=== PATIENT | female | born 1960 | race Caucasian/White ===

== ENCOUNTER 2022-12-25 09:29 | Day surgery (SDC) | payer MEDICAID, SELFPAY ==
[2022-12-25] VITALS (13 sets, daily range): BP systolic 111–154; BP diastolic 56–87; PULSE 56–71; RESP 12–16; TEMP 36.5–37.3; O2SAT 91–99; BMI 31.6
--- NOTE | 2022-12-25 09:25 | PC.SOCIAL ---
Met with pt. who currently does not have insurance and needs surgery. Pt. states she applied for medical assistance a year ago and was denied due to her income. Gave pt. the financial assistance application through [facility] and recommended pt. apply for MA again due to her costly surgery. Requested pt.'s surgeon write a letter of medical necessity that pt. can submit with her medical assistance application. Pt. works at the [employer] and plans to fill out the medical assistance application on line.
[2022-12-25] MEDS: LACTATED RINGERS 1000 ML 1,000 ML 100 ML IV (10:00)
[2022-12-25] MEDS: SODIUM CHLORIDE 0.9 % (FLUSH) 10 ML SYRINGE IVF (10:00)
--- NOTE | 2022-12-25 11:37 | W.ANESCHARGE ---
Anesthesia Charges Start Date/Time Anesthesia Start Date: 12/25/22 Anesthesia Start Time: 12:16 Stop Date/Time Anesthesia Stop Date: 12/25/22 Anesthesia Stop Time: 13:43
[2022-12-25] MEDS: BUPIVACAINE 0.25% 30 ML 20 ML INJECTION (13:18)
--- NOTE | 2022-12-25 13:25 | P.GSOP_ITS ---
Operative Note Date of procedure: 12/25/22 Pre-op diagnosis: 1. Acute on chronic cholecystitis. 2. Cholelithiasis. Post-op diagnosis: Same Type of Procedure: 1. Laparoscopic cholecystectomy. Indications: 62-year-old female was seen in clinic with persistent right upper quadrant and epigastric pain that started last week the pain was severe and persistent. Patient had similar painful episodes in the past but those would usually resolve in a couple days. This pain did not resolve and patient was concerned. She was seen in clinic by her primary care doctor first and was found to have a normal WBC. Her liver function tests and lipase were normal. A gallbladder ultrasound was obtained that showed thickened gallbladder wall with a stone in the gallbl adder and debris. Her common bile duct was normal. Patient was referred to surgery Clinic. On clinical exam she had tenderness to palpation in the right upper quadrant with positive Guardado sign. Given patient's clinical history and her laboratory and imaging findings, acute on chronic cholecystitis was suspected, and laparoscopic cholecystectomy was recommended. The procedure was discussed in detail. The risks associated procedure including infection, bleeding, injury to intra-abdominal organs, and injury to the common bile duct were all discussed with the patient, and she agreed to proceed. Procedure Description: After discussing the risks and benefits of the procedure, the patient signed informed consent.? The operative site was marked and the patient was brought to the operating room and placed on the operating table in supine position.? Care was taken to pad the patient's pressure points.?? The patient was then Intubated by anesthesia.?? The operative site was then prepped and draped in the usual sterile fashion.? A time-out was then performed. A 5-mm laparoscopy port was placed in the left upper quadrant guided by a 5-mm laparoscope placed into a translucent trochar.~ Passage through the layers of the abdominal wall was visualized with the laparoscope.~ A pneumoperitoneum was established. A 0-degree 5-mm laparoscope was advanced into the abdomen. The abdomen was briefly surveyed, and no adhesions were noted. A 10-mm port were placed supraumbilically and two more 5 mm ports were placed on the right under direct visualization by laparoscope. The camera was then changed to 10 mm 30- degree scope and placed into the abdomen through the 10 mm port. The left upper quadrant port entrance was examined and no injury to intra-abdominal organs was identified. The gallbladder was identified but I was unable to grasp the gallbladder. The gallbladder was then decompressed with laparoscopic needle. 15 mL of thickened bile was suctioned out and I was able to grasp the gallbladder. The fundus Was grasped and retracted cephalad. I was not able to grasp the infundibulum because there was a large stone lodged in the infundibulum. The dissection was mostly performed with retracting the infundibulum bluntly. The peritoneum overlying triangle of Calot was divided with hook cautery. Common bile duct was not identified but care was taken not to injure it. The cystic duct was clearly identified and bluntly dissected circumferentially. Cystic artery was identified and tissues around it were dissected off. The node of Calot was dissected off the cystic artery and retracted towards the duodenum. The tissues in the triangle of Calot were very dense and fibrotic. The peritoneum overlying the gallbladder was also fibrotic suggestive of chronic inflammation. The cystic artery and the cystic duct were clearly going into the gallbladder. The cystic duct was then doubly ligated with surgical clips on the patient's side and singly clipped on the gallbladder side and divided. The cystic artery was then similarly ligated with clips and divided as well. The gallbladder was dissected from the liver bed in retrograde fashion using hookcautery. This dissection was very difficult because it was difficult to tell where the plane between the gallbladder and the liver was. During this dissection the gallbladder was entered and thickened sludge came out from the gallbladder. This was suctioned out. The gallbladder was then finally dissected of the liver and placed into an Endo-Catch bag and removed through the supraumbilical incision. Surgical site was examined for bleeding. No bleeding was seen in the surgical field. The fascia of the supraumbilical incision was then closed with 0-0 vicryl using Crow Asher needle under direct visualization. Patient had a small umbilical hernia in this area and this was not repaired. Pneumoperitoneum was completely reduced after viewing removal of the trocars under direct vision. The skin was then closed with 4-0 monocryl and steristrips were applied. Instrument, sponge, and needle counts were correct at closure and at the conclusion of the case. The patient was transferred to PACU in stable condition. Findings: Acute on chronic inflammation with a large stone lodged at the infundibulum. Small umbilical hernia. Anesthesia: GETA Surgeon: Michael Lopez MD Estimated blood loss (mL): 20 Specimen: Gallbladder Condition: stable Disposition: PACU
--- NOTE | 2022-12-25 13:44 | W.ANESCHARGE ---
Anesthesia Charges Start Date/Time Anesthesia Start Date: 12/25/22 Anesthesia Start Time: 12:16 Stop Date/Time Anesthesia Stop Date: 12/25/22 Anesthesia Stop Time: 13:43
== END 2022-12-25 15:45 | disposition home or self-care (01) ==
PROVIDERS: Visit Provider Surgery
PROC: 0FT44ZZ Resection of Gallbladder, Percutaneous Endoscopic Approach (ICD-10-PCS; CPT 47562; principal; 2022-12-25 12:00)
DX: K80.12 Calculus of gallbladder with acute and chronic cholecystitis without obstruction (principal)
CPT/HCPCS: 47562; 00790; 88304; J0330; J0665; J1100; J1885; J2405; J2704; J2710; J3010; J7120

== ENCOUNTER 2023-08-28 12:09 | Emergency (ER) | payer BC, SELFPAY ==
[2023-08-28 12:17] VITALS: BP 170/103; PULSE 53; RESP 14; TEMP 36.2; O2SAT 96; BMI 32.6
--- NOTE | 2023-08-28 12:47 | CT_ITS ---
Patient: BRIAN MATAMOROS Facility:?[facility] Patient ID:?[id number] Site Patient ID:?[id number]. Site :?[id number] Study:?CT-Chest PE W/ISOVUE 370 95CC-08/28/2023 2:34:48 PM Ordering Physician:LORETA Final Report: Indication: Shortness of breath, left upper quadrant pain Technique: Volumetric multidetector CT images of the chest were obtained after the administration of IV contrast. Contrast low osmolar intravenous contrast Comparison: None available. Findings: The thoracic inlet and thyroid gland are unremarkable. The thoracic aorta is nonaneurysmal. There is no central filling defect to suggest pulmonary embolism. There is no mediastinal, hilar or axillary adenopathy. There is mild central bronchial thickening. There is mild interstitial prominence and air trapping within the lower lobes likely representing low lung volumes with atelectasis, mild pulmonary vascular congestion is difficult to exclude. No dense consolidation, effusion or pneumothorax. There is no evidence of pulmonary mass or suspicious pulmonary nodule. The partially visualized upper abdominal viscera are within normal limits. The thoracic vertebral body heights remain intact alignment without significant degenerative change or acute osseous abnormality. Impression: Somewhat low lung volumes with likely basilar atelectasis and bronchovascular crowding. Mild central bronchial thickening and interstitial prominence. A component of mild pulmonary vascular congestion is difficult to exclude. No evidence of pulmonary embolus. Please note that all CT scans at this facility use dose modulation, iterative reconstruction, and/or weight-based dosing when appropriate to reduce radiation dose to as low as reasonably achievable. Dictated by Branden Prince MD @ 08/28/2023 3:26:44 PM Signed by:?Branden Prince MD @08/28/2023 3:26:44 PM (Electronic Signature)
--- NOTE | 2023-08-28 12:47 | CT_ITS ---
Patient: BRIAN MATAMOROS Facility:?[facility] Patient ID:?[id number] Site Patient ID:?[id number] Site :?1960 Study:?CT-Abdomen/Pelvis W/ISOVUE 370 95CC-08/28/2023 2:35:03 PM Ordering Physician:LORETA Final Report: Indication: Shortness of breath, left upper quadrant pain Technique: Volumetric multidetector CT images of the abdomen and pelvis were obtained after the administration of intravenous contrast. 95 cc Isovue 370 low osmolar intravenous contrast Comparison: None available. Findings: There is minimal basilar atelectasis and parenchymal scar. The liver is normal in attenuation without intrahepatic biliary ductal dilatation. The portal vein is patent. There is prior cholecystectomy. Mild common biliary ductal dilatation. The spleen is normal in enhancement and size. The stomach and duodenum are grossly unremarkable. The pancreas is normal in enhancement without significant atrophy. The adrenal glands are unremarkable. The kidneys demonstrate preserved corticomedullary differentiation without evidence of obstructive uropathy. There is moderate stool seen throughout the colon with distal colonic diverticulosis without evidence of diverticulitis. There is mild nonspecific fluid seen throughout the central small bowel. The appendix is unremarkable. There is no significant mesenteric, retroperitoneal, or pelvic sidewall lymph nodes. The aorta is nonaneurysmal. There is no significant atherosclerotic disease appreciated. The solid pelvic viscera are grossly unremarkable. There is no free fluid or free air. The anterior abdominal wall is intact without significant hernias. The lumbar vertebral body heights are grossly maintained with mild to moderate degenerative disc disease. There is moderate facet arthrosis. Impression: Moderate stool with colonic diverticulosis without definite evidence of diverticulitis. Prior cholecystectomy. Otherwise, no acute intra-abdominal abnormalities are appreciated. Please note that all CT scans at this facility use dose modulation, iterative reconstruction, and/or weight-based dosing when appropriate to reduce radiation dose to as low as reasonably achievable. Dictated by Branden Prince MD @ 08/28/2023 3:30:37 PM Signed by:Veronica Prince MD @08/28/2023 3:30:37 PM (Electronic Signature)
--- NOTE | 2023-08-28 12:57 | ED.GENADULT ---
HPI - General Adult General Date Seen: 08/28/23 Chief complaint: Shortness of Breath/Dyspnea Stated complaint: Shortness of breath, L side pain Time Seen by Provider: 08/28/23 12:12 Source: patient and RN notes reviewed Mode of arrival: ambulatory Limitations: no limitations History of Present Illness HPI narrative: Patient is a 62-year-old woman who presents for evaluation of left upper abdominal pain as well as shortness of breath. She says that she initially noted some pain in her left upper to mid abdomen which now radiates to the left flank about 10-12 days ago. She plays pickleball on Fridays, and assumed that she had just pulled a muscle, but symptoms have persisted and now seem to be spreading to the back. Along the same time frame, she has noticed some shortness of breath, initially just when she was playing pickleball but she says for the past several days she feels short of breath all the time. She says she feels winded is if she had just run up a flight of stairs. She has not had chest pain or pressure, shortness of breath has now been constant for several days without variation. She denies lower extremity swelling or pain. She has not had fevers or cough. She has a history of hypertension, was recently started on lisinopril which she had says has not made any difference in her blood pressure. She denies vomiting, diarrhea, black or bloody stools. She smoked many years ago but does not have any history of COPD or asthma and quit smoking over 10 years ago. Related Data Home Medications Medication Instructions Recorded Confirmed cefadroxil 500 mg capsule 500 mg PO BID 08/28/23 08/28/23 lisinopril 10 mg tablet 10 mg PO DAILY 08/28/23 08/28/23 silver sulfadiazine 1 % topical applic topical 08/28/23 cream (SSD) Allergies Allergy/AdvReac Type Severity Reaction Status Date / Time scotchgard Allergy Intermediate rash Uncoded 12/25/22 08:29 Review of Systems Status of ROS: Reports: 10 or more systems reviewed and unremarkable except as noted in History and below [facility] Surgical History S/P tubal ligation ?Z98.51 - Tubal ligation status (ICD-10) Social History Smoking Status: Never smoker Do you use any of these nicotine containing products: None How often do you have a drink containing alcohol: 2-3 times a week Alcohol type: beer, wine and hard liquor How many standard drinks containing alcohol do you have on a typical day: 1 or 2 How often do you have six or more drinks on one occasion: Never AUDIT-C Alcohol total score: 3 Non-prescribed substance use: denies use Caffeine: Yes Are you using contraception or practicing any form of control: No Exam Narrative: Exam Narrative: Vital signs as noted above. In general, an alert, well-appearing patient. Head: Normocephalic, atraumatic. Eyes: Pupils are equal reactive. Extraocular movements are full. Conjunctivae are normal. ENT: Mucous membranes are moist. Throat is normal. Neck: Supple without lymphadenopathy. Heart: Regular rate and rhythm. No murmur or rub. Lungs: Clear bilaterally. No increased work of breathing, crackles or wheezes. Abdomen: Soft, nondistended. Mild left mid upper abdominal tenderness without rebound guarding or rigidity. No CVA tenderness. Extremities: Well perfused. No edema. No calf tenderness. Pulses intact. Neurologic: Patient is alert and oriented to person and place. Speech is fluent. Face is symmetric. Moves all extremities equally. Affect: Normal. Skin: Warm and dry. Well perfused. Const: Vital Signs, click to edit/add: Vital Signs - 24 hr 08/28/23 12:17 08/28/23 16:05 Temperature 97.2 F L Pulse Rate [Pulse Oximeter] 53 L 51 L Respiratory Rate 14 16 Blood Pressure [Ri ght Upper Arm] 170/103 H 152/92 H Pulse Oximetry 96 97 Oxygen Delivery Me thod Room Air Room Air Documenting provider has reviewed patient's vital signs: yes Course Course ED Course: Patient presents with shortness of breath and left abdominal pain, unclear whether these are related. Diagnostic considerations include atypical angina, acute coronary syndrome, pleural effusion, pneumonia, PE, congestive heart failure, pyelonephritis or kidney stone, diverticulitis, anemai, among others. With persistence of left-sided pain for the past week and half, I think it is reasonable to image and therefore will do a CT scan of the chest as well as the abdomen to evaluate for the above pathology. Patient's labs notable for a normal white blood cell count of 6.7, normal hemoglobin. Initial point of care troponin was 0.09, but a 2 hour repeat was 0. Will send a lab troponin to clarify. COVID and influenza as well as RSV were negative. UA negative, 0-2 red cells 0-2 white cells. Metabolic panel within normal limits, LFTs within normal limits with the exception of very minimal elevations of AST and ALT at 37 each. CRP less than 0.5, BNP was entirely normal at 37. Lipase was 284 and TSH was normal. CT scans of the chest abdomen pelvis by my review did not show any significant findings such as PE, consolidation, hemorrhage, mass or evidence of renal pathology or diverticulitis. Final radiology read of the chest CT is as follows:Findings: The thoracic inlet and thyroid gland are unremarkable. The thoracic aorta is nonaneurysmal. There is no central filling defect to suggest pulmonary embolism. There is no mediastinal, hilar or axillary adenopathy. There is mild central bronchial thickening. There is mild interstitial prominence and air trapping within the lower lobes likely representing low lung volumes with atelectasis, mild pulmonary vascular congestion is difficult to exclude. No dense consolidation, effusion or pneumothorax. There is no evidence of pulmonary mass or suspicious pulmonary nodule. The partially visualized upper abdominal viscera are within normal limits. The thoracic vertebral body heights remain intact alignment without significant degenerative change or acute osseous abnormality. Impression: Somewhat low lung volumes with likely basilar atelectasis and bronchovascular crowding. Mild central bronchial thickening and interstitial prominence. A component of mild pulmonary vascular congestion is difficult to exclude. No evidence of pulmonary embolus. CT of the abdomen and pelvis read as follows: The liver is normal in attenuation without intrahepatic biliary ductal dilatation. The portal vein is patent. There is prior cholecystectomy. Mild common biliary ductal dilatation. The spleen is normal in enhancement and size. The stomach and duodenum are grossly unremarkable. The pancreas is normal in enhancement without significant atrophy. The adrenal glands are unremarkable. The kidneys demonstrate preserved corticomedullary differentiation without evidence of obstructive uropathy. There is moderate stool seen throughout the colon with distal colonic diverticulosis without evidence of diverticulitis. There is mild nonspecific fluid seen throughout the central small bowel. The appendix is unremarkable. There is no significant mesenteric, retroperitoneal, or pelvic sidewall lymph nodes. The aorta is nonaneurysmal. There is no significant atherosclerotic disease appreciated. The solid pelvic viscera are grossly unremarkable. There is no free fluid or free air. The anterior abdominal wall is intact without significant hernias. The lumbar vertebral body heights are grossly maintained with mild to moderate degenerative disc disease. There is moderate facet arthrosis. Impression: Moderate stool with colonic diverticulosis without definite evidence of diverticulitis. Prior cholecystectomy. Otherwise, no acute intra-abdominal abnormalities are appreciated. With clear lungs, normal O2 set and a BNP of 37, I do not think her symptoms are related to significant heart failure. Have reviewed all this with her. The lab troponin is pending. If that is normal, then I would recommend outpatient follow-up and consideration of stress test given that she had had some exertional dyspnea over the past couple of weeks. No other acute findings to explain her symptoms on today's evaluation. Vital Signs Vital signs: Initial Vital Signs Temperature 97.2 F L 08/28/23 12:17 Temperature Source Temporal Artery Scan 08/28/23 12:17 Pulse Rate 53 L 08/28/23 12:17 Pulse Rhythm Regular 08/28/23 12:17 Respiratory Rate 14 08/28/23 12:17 Blood Pressure 170/103 H 08/28/23 12:17 Blood Pressure Mean 125 H 08/28/23 12:17 Blood Pressure Position Sitting 08/28/23 12:17 Pulse Oximetry 96 08/28/23 12:17 Oxygen Delivery Method Room Air 08/28/23 12:17 Vital Signs Temperature 97.2 F L 08/28/23 12:17 Pulse Rate 53 L 08/28/23 12:17 Respiratory Rate 14 08/28/23 12:17 Blood Pressure 170/103 H 08/28/23 12:17 Pulse Oximetry 96 08/28/23 12:17 Oxygen Delivery Method Room Air 08/28/23 12:17 Temperature 97.2 F L 08/28/23 12:17 Pulse Rate 51 L 08/28/23 16:05 Respiratory Rate 16 08/28/23 16:05 Blood Pressure 152/92 H 08/28/23 16:05 Pulse Oximetry 97 08/28/23 16:05 Oxygen Delivery Method Room Air 08/28/23 16:05 Medical Decision Making Lab Data Labs: Lab Results 08/28/23 08/28/23 08/28/23 Range/Units 13:20 14:32 14:51 WBC 6.88 (4.50-11.00) K/uL RBC 4.61 (4.00-5.20) m/uL Hgb 14.6 (12.0-16.0) gm/dL Hct 44.0 (33.0-51.0) % MCV 95 (80-100) fL MCH 32 (26-34) pg MCHC 33 (32-36) gm/dL RDW Coeff of [place] 12.7 (11.5-15.5) % Plt Count 257 (140-440) K/uL Neut % (Auto) 54.4 (42.0-72.0) % Lymph % (Auto) 34.3 (20-44) % [place] % (Auto) 6.5 (0.0-11.0) % Eos % (Auto) 4.1 (0.0-7.0) % Baso % (Auto) 0.6 (0.0-3.0) % Neut # (Auto) 3.74 (1.7-7.0) K/uL Lymph # (Auto) 2.36 (0.90-2.90) K/uL [place] # (Auto) 0.40 (0.00-0.90) K/UL Eos # (Auto) 0.28 (0.00-0.50) K/uL Baso # (Auto) 0.04 (0.00-0.30) K/uL Abs Immat Gran (auto) 0.01 (0.00-0.30) K/uL Imm/Tot Granulo (auto) 0.1 % Sodium 140 (135-149) mmol/L Potassium 3.9 (3.6-5.1) mmol/L Chloride 106 (96-114) mmol/L Carbon Dioxide 28 (20-32) mmol/L Anion Gap 6 L (7-15) mEq/L BUN 19 (7-30) mg/dL Creatinine 0.8 (0.5-1.5) mg/dL Estimated Creat Clear 46.73 Estimated GFR 84 ml/min Glucose 91 (60-115) mg/dL Calcium 9.6 (8.4-10.6) mg/dL Total Bilirubin 0.6 (0.1-1.5) mg/dL Direct Bilirubin 0.2 (0.0-0.5) mg/dL AST 37 H (12-35) U/L ALT 37 H (4-35) U/L Alkaline Phosphatase 82 (40-150) U/L Troponin I (0.01-0.04) ng/mL C-Reactive Protein < 0.5 L (0.5-1.0) mg/dL NT-Pro-B Natriuret Pep 37 pg/mL Total Protein 8.1 (6.0-8.3) g/dL Albumin 4.7 (3.3-5.0) g/dL Lipase 284 (23-300) U/L TSH 2.370 (0.270-4.200) uIU/mL Urine Color Yellow (Yellow) Urine Appearance Clear (Clear) Urine pH 6.5 (5.0-8.5) Ur Specific [place] 1.015 (1.000-1.030) Urine Protein Negative (Negative) Urine Glucose (UA) Negative (Negative) Urine Ketones Negative (Negative) Urine Blood Trace-intact A (Negative) Urine Nitrite Negative (Negative) Urine Bilirubin Negative (Negative) Urine Urobilinogen 0.2 (0.2-1.0) Ur Leukocyte Esterase Negative (Negative) Urine RBC 0-2 (0-2) Urine WBC 0-2 (0-5) Ur Squamous Epith Cells None (None-Few) Urine Bacteria None (None) SARS-CoV-2 (PCR) Negative SARS-CoV-2 (Negative) Influenza Type A (PCR) Negative PCR FLU A (Negative) Influenza Type B (PCR) Negative PCR FLU B (Negative) RSV (PCR) Negative PCR RSV (Negative) POC Troponin I 0.09 H 0.00 L (0.01-0.04) ng/ml 08/28/23 Range/Units 15:22 WBC (4.50-11.00) K/uL RBC (4.00-5.20) m/uL Hgb (12.0-16.0) gm/dL Hct (33.0-51.0) % MCV (80-100) fL MCH (26-34) pg MCHC (32-36) gm/dL RDW Coeff of [place] (11.5-15.5) % Plt Count (140-440) K/uL Neut % (Auto) (42.0-72.0) % Lymph % (Auto) (20-44) % [place] % (Auto) (0.0-11.0) % Eos % (Auto) (0.0-7.0) % Baso % (Auto) (0.0-3.0) % Neut # (Auto) (1.7-7.0) K/uL Lymph # (Auto) (0.90-2.90) K/uL [place] # (Auto) (0.00-0.90) K/UL Eos # (Auto) (0.00-0.50) K/uL Baso # (Auto) (0.00-0.30) K/uL Abs Immat Gran (auto) (0.00-0.30) K/uL Imm/Tot Granulo (auto) % Sodium (135-149) mmol/L Potassium (3.6-5.1) mmol/L Chloride (96-114) mmol/L Carbon Dioxide (20-32) mmol/L Anion Gap (7-15) mEq/L BUN (7-30) mg/dL Creatinine (0.5-1.5) mg/dL Estimated Creat Clear Estimated GFR ml/min Glucose (60-115) mg/dL Calcium (8.4-10.6) mg/dL Total Bilirubin (0.1-1.5) mg/dL Direct Bilirubin (0.0-0.5) mg/dL AST (12-35) U/L ALT (4-35) U/L Alkaline Phosphatase (40-150) U/L Troponin I < 0.01 L (0.01-0.04) ng/mL C-Reactive Protein (0.5-1.0) mg/dL NT-Pro-B Natriuret Pep pg/mL Total Protein (6.0-8.3) g/dL Albumin (3.3-5.0) g/dL Lipase (23-300) U/L TSH (0.270-4.200) uIU/mL Urine Color (Yellow) Urine Appearance (Clear) Urine pH (5.0-8.5) Ur Specific [place] (1.000-1.030) Urine Protein (Negative) Urine Glucose (UA) (Negative) Urine Ketones (Negative) Urine Blood (Negative) Urine Nitrite (Negative) Urine Bilirubin (Negative) Urine Urobilinogen (0.2-1.0) Ur Leukocyte Esterase (Negative) Urine RBC (0-2) Urine WBC (0-5) Ur Squamous Epith Cells (None-Few) Urine Bacteria (None) SARS-CoV-2 (PCR) (Negative) Influenza Type A (PCR) (Negative) Influenza Type B (PCR) (Negative) RSV (PCR) (Negative) POC Troponin I (0.01-0.04) ng/ml Discharge Plan Discharge Clinical Impression: Shortness of breath, HTN (hypertension) Patient Disposition: Home, Self-Care Condition: Stable Instructions: Shortness of Breath (ED) Additional Instructions: Your lab troponin is normal. Your kidney function is entirely within normal limits today, and other labs are also reassuring. CT scan of your chest, abdomen and pelvis are There is no clear explanation for your symptoms at this time, but I would recommend that you follow-up with primary care and consider a stress test. You may need additional alterations in your blood pressure medications as well. If you have severe or significantly worsening symptoms return to the ER at any time. Prescriptions: No Action silver sulfadiazine [SSD] 1 % cream topical cefadroxil 500 mg capsule 500 mg PO BID lisinopril 10 mg tablet 10 mg PO DAILY Follow Up/Referrals: Provider,Not a Local [Primary Care Provider] - Stand Alone Forms: [employer] Info Instructions
[2023-08-28 13:35] LABS: Basophils Absolute Auto 0.04 K/uL (0.00-0.30); Basophils Percent Auto 0.6 % (0.0-3.0); Eosinophils Absolute Auto 0.28 K/uL (0.00-0.50); Eosinophils Percent Auto 4.1 % (0.0-7.0); Hemoglobin* 14.6 gm/dL (12.0-16.0); Immature Granulocytes Abs Auto 0.01 K/uL (0.00-0.30); Immature Granulocytes Pct Auto 0.1 %; Lymphocytes Absolute Auto 2.36 K/uL (0.90-2.90); Lymphocytes Percent Auto 34.3 % (20-44); Mean Corpuscular HGB Conc 33 gm/dL (32-36); Mean Corpuscular Hemoglobin 32 pg (26-34); Mean Corpuscular Volume 95 fL (80-100); Monocytes Percent Auto 6.5 % (0.0-11.0); Neutrophils Absolute Auto 3.74 K/uL (1.7-7.0); Neutrophils Percent Auto 54.4 % (42.0-72.0); Platelet Count* 257 K/uL (140-440); RDW Coefficient of Variation % 12.7 % (11.5-15.5); Red Blood Count 4.61 m/uL (4.00-5.20); White Blood Count* 6.88 K/uL (4.50-11.00)
[2023-08-28 13:40] LABS: Troponin, Point-of-Care* 0.09 ng/ml (0.01-0.04)
[2023-08-28 13:41] LABS: Slide Review Reflex No
[2023-08-28 14:02] LABS: Chloride* 106 mmol/L (96-114); Potassium* 3.9 mmol/L (3.6-5.1); Sodium* 140 mmol/L (135-149)
[2023-08-28 14:03] LABS: Albumin* 4.7 g/dL (3.3-5.0)
[2023-08-28 14:04] LABS: Creatinine* 0.8 mg/dL (0.5-1.5); Est. Creatinine Clearance* 46.73; Estimated Glomerular Filt Rate 84 ml/min
[2023-08-28 14:05] LABS: Anion Gap 6 mEq/L (7-15); Blood Urea Nitrogen* 19 mg/dL (7-30); Carbon Dioxide* 28 mmol/L (20-32); Glucose* 91 mg/dL (60-115)
[2023-08-28 14:06] LABS: Alkaline Phosphatase* 82 U/L (40-150); Aspartate Amino Transferase* 37 U/L (12-35); Bilirubin Direct* 0.2 mg/dL (0.0-0.5); Bilirubin Total* 0.6 mg/dL (0.1-1.5); Calcium* 9.6 mg/dL (8.4-10.6); Lipase* 284 U/L (23-300); Total Protein* 8.1 g/dL (6.0-8.3)
[2023-08-28 14:07] LABS: Alanine Aminotransferase* 37 U/L (4-35)
[2023-08-28 14:09] LABS: C Reactive Protein* < 0.5 mg/dL (0.5-1.0)
[2023-08-28 14:17] LABS: NT Pro B Type NatriureticPept* 37 pg/mL
[2023-08-28 14:45] LABS: Appearance Urine Clear (Clear); Bilirubin Urine Negative (Negative); Blood Urine Trace-intact (Negative); Color Urine Yellow (Yellow); Glucose Urine Negative (Negative); Ketones Urine Negative (Negative); Leukocyte Esterase Urine Negative (Negative); Nitrite Urine Negative (Negative); Protein Urine Negative (Negative); Specific Gravity Urine 1.015 (1.000-1.030); Urobilinogen Urine 0.2 (0.2-1.0); pH Urine 6.5 (5.0-8.5)
[2023-08-28 15:07] LABS: PCR FLU A Negative PCR FLU A (Negative); PCR FLU B Negative PCR FLU B (Negative); PCR RSV Negative PCR RSV (Negative); SARS PCR* Negative SARS-CoV-2 (Negative)
[2023-08-28 15:12] LABS: RBC Urine 0-2 (0-2); WBC Urine 0-2 (0-5)
[2023-08-28 16:05] VITALS: BP 152/92; PULSE 51; RESP 16; O2SAT 97
[2023-08-28 16:30] LABS: Troponin I* < 0.01 ng/mL (0.01-0.04)
== END 2023-08-28 16:55 | disposition home or self-care (01) ==
PROVIDERS: Emergency Provider Emergency Medicine
DX: R06.02 Shortness of breath (principal); I10 Essential (primary) hypertension
CPT/HCPCS: 36415; 71275; 74177; 80048; 80076; 81001; 83690; 83880; 84443; 84484; 85025; 86140; 87631; 93005; 99284; 99285; Q9967